=== PATIENT | male | born 1955 | race American Indian/Alaskan Native ===

== ENCOUNTER 2018-09-29 08:37 | Outpatient (CLI) | payer MEDICAID ==
--- NOTE | 2018-09-29 10:48 | Fluoroscopy Report ---
AIR CONTRAST BARIUM ENEMA History: Colonic polyps. Incomplete colonoscopy. Findings: 12 fluoroscopic images were saved during this exam. Engine Room Operator film of the abdomen demonstrates an unremarkable bowel gas pattern. A rectal tube was inserted for retrograde delivery of barium contrast agent and air. The colon is normal caliber and distensibility throughout. There are a few scattered diverticula in the descending colon and sigmoid colon. No evidence for colonic mass. No polyposis is detected. A normal appendix is identified. No cecal abnormality is appreciated. Impression: No colon mass or polyp is identified. Mild diverticulosis of the distal colon.
== END 2018-09-29 08:38 | disposition home or self-care (01) ==
LOC: FLUORO 08:37
PROVIDERS: ATTEND Internal Medicine Gastroenterology
DX: K57.30 Diverticulosis of large intestine without perforation or abscess without bleeding (principal); Z86.010 Personal history of colon polyps
CPT/HCPCS: 74280

== ENCOUNTER 2021-06-08 12:55 | Emergency (ER) | payer OTHER, MEDICAID ==
[2021-06-08 13:11] VITALS: BP 175/98
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
== END 2021-06-08 15:06 | disposition home or self-care (01) ==
LOC: ED 12:55
DX: M54.2 Cervicalgia (principal); V49.49XA Driver injured in collision with other motor vehicles in traffic accident, initial encounter; Y93.89 Activity, other specified; Y92.89 Other specified places as the place of occurrence of the external cause; Y99.8 Other external cause status
CPT/HCPCS: 72040; 99283